=== PATIENT | male | born 1985 | race Two or more races ===

== ENCOUNTER 2025-07-03 07:23 | Emergency (ER) | payer MEDICAID, SELFPAY ==
[2025-07-03 07:53] VITALS: BP 128/84; PULSE 120; RESP 16; TEMP 37.6; O2SAT 96; BMI 27.9
[2025-07-03] MEDS: ACETAMINOPHEN 500 MG TABLET 1000 MG PO (08:23)
[2025-07-03] MEDS: IBUPROFEN TAB 400 MG TABLET 800 MG PO (08:23)
--- NOTE | 2025-07-03 08:37 | PD.EDFEVER ---
ED Fever RME/HPI General Chief Complaint: Fever Stated Complaint: FEVER, ABD PAIN, DIARRHEA, ANDRADE SINCE LAST NIGHT Time Seen by Provider: 07/03/25 08:00 Arrival date/time: 07/03/25 07:23 This is a 39-year-old male that comes into the emergency room with complaints of fever abdominal soreness, diarrhea and a headache since last night. Patient denies any other symptoms. Patient denies past medical history. Related Data Previous Rx's ?Medication ?Instructions ?Recorded ibuprofen 800 mg tablet 800 mg PO Q6H PRN pain #20 tabs 07/03/25 Allergies Allergy/AdvReac Type Severity Reaction Status Date / Time No Known Allergies Allergy Verified 07/03/25 07:30 Review of Systems Review of Systems Systems Reviewed: All systems reviewed, normal except as documented Past Medical History Past Medical History CARDIAC: Negative Congestive Heart Failure RESPIRATORY: Negative Chronic Obstructive Pulmonary Disease (COPD) GENITOURINARY: Negative Renal Disease ENDOCRINE: Negative Diabetes Mellitus Type 1 or Diabetes Mellitus Type 2 Social History SMOKING STATUS: Never smoker Physical Exam Narrative Physical exam: VITAL SIGNS: Reviewed. GENERAL APPEARANCE: Alert and interactive, follows commands, no acute distress, HEAD AND FACE: Non-traumatic. ENT: PERRL, conjuctiva pink and clear, eyelid no trauma, Mucous membrane moist. NECK: Supple, nontender, no nuchal rigidity. CHEST: No tenderness, no crepitus LUNGS: Clear, well ventilated, symmetric, no rales, no wheezing, no rhonchi, no stridor, good breath sounds bilaterally. HEART: Cap refill less than 2 seconds ABDOMEN: Soft, nondistended, no guarding, nontender NEUROLOGICAL: Gross motor function intact sensory function intact, Appropriate for age. MUSCULOSKELETAL: low back nontender, full range of motion. EXTREMITIES: No redness no swelling no skin breakdown on bilateral foot and leg. Distal neurovascular status intact bilateral foot SKIN: Color pink, dry, no rash, no lacerations, no abrasions, no contusions. Course Quality Measures none Orders Category Date Time Status Bedside COVID-19 Antigen Test NOW Care 07/03/25 08:11 Completed Influenza A & B Rapid Panel Stat Lab 07/03/25 08:50 Completed Urinalysis, C/S if Indicated Stat Lab 07/03/25 08:46 Completed Acetaminophen Tab [Tylenol ES Tab] Med 07/03/25 08:11 Discontinued 1,000 mg PO X1 ONE Ibuprofen Tab [Motrin Tab] Med 07/03/25 08:11 Discontinued 800 mg PO X1 ONE Vital Signs Vital signs: Vital Signs Temperature 99.7 F 07/03/25 07:53 Pulse Rate 120 H 07/03/25 07:53 Respiratory Rate 16 07/03/25 07:53 Blood Pressure 128/84 07/03/25 07:53 Pulse Oximetry (%) 96 07/03/25 07:53 Oxygen Delivery Method Room Air 07/03/25 07:53 Fever MDM Narrative MDM Narrative:: COVID and flu negative. Patient feels better after Tylenol ibuprofen. Will treat patient for URI. Follow up with primary provider in 1-2 days. Come back to ED if symptoms change or worsen Lupison dictation: Although this document has been carefully reviewed, there may still be some phonetic and other typographical errors. These errors are purely grammatical due to imperfections in the software program and should not be construed in any way to compromise the substance of the patient's medical care during this visit. Patient data External records reviewed:: [facility] previous records Clinical information provided by:: patient Social determinants that could affect healthcare access:: none Patient has the following chronic illnesses:: None How is presenting disease/condition affected by chronic disease/condition?: no chronic disease Evaluation data The following diagnostics were reviewed and interpreted by me:: lab results Lab and/or radiology exams considered but not ordered:: None Interpretation Summary: See note Medications / Prescriptions Medications or Prescriptions considered but not ordered:: None Medication administrations:: Medication Administration History Discontinued Medications Acetaminophen (Acetaminophen 500 Mg Tablet) 1,000 mg PO X1 ONE Stop: 07/03/25 08:12 Last Admin: 07/03/25 08:23 Dose: 1,000 mg Documented By: ED Ibuprofen (Ibuprofen Tab 400 Mg Tablet) 800 mg PO X1 ONE Stop: 07/03/25 08:12 Last Admin: 07/03/25 08:23 Dose: 800 mg Documented By: ED See MAR Consultations Consultation(s) initiated? (list below): No Diagnosis Fever Differential Diagnosis: fever of unknown origin, community acquired pneumonia, viral infection, influenza and other (URI) Most likely diagnosis given after review of the tests above:: uri Admission Indicated Admission indicated?: not indicated Admission Request Was there a request for admission?: No Disposition Plan Disposition Plan: Discharge Discharge Attestation Discharge Attestation: The patient and all family members were given an opportunity to ask questions and understood the discharge instructions. Discharge instructions specifically effects, indications for sooner follow up or return to the emergency department, and the expected course of current diagnosis. Patient condition: Stable Discharge Plan Plan Patient Disposition: HOME (Self Care) Patient condition on transfer: Stable Prescriptions/Referrals Prescriptions/Med Rec: New ibuprofen 800 mg tablet 800 mg PO Q6H PRN (Reason: pain) Qty: 20 0RF Referrals: No Primary/Family,Physician [Primary Care Provider] - In 1 week Problem List Clinical Impression: URI (upper respiratory infection) Patient/Caregiver Discharge Instructions Discharge Activity: activity as tolerated Education Materials: ED URI, Viral, No Abx (Adult) Additional Instructions: Brandin un brii con villatoro medico de cabecera en las proximas 24-48 horas. Regrese a la robbin de emergencias si hay evidencia de que los signos o sintomas empeoran. Print Language: Korean Stand Alone Forms: Amara Award Info., Patient Portal Info Letter PA/CAR CONSTRUCTION SUPERINTENDENT Supervising Physician PA/CAR CONSTRUCTION SUPERINTENDENT Supervising Physician: darwin
[2025-07-03 09:20] LABS: Collection Type, Urine Voided; Squamous Epithelial Cell,Urine 0 /hpf (0-5)
[2025-07-03 09:43] LABS: Influenza A Ag Negative; Influenza B Ag Negative
[2025-07-03 09:57] LABS: Bilirubin,Urine Negative (Negative); Blood,Urine Negative (Negative); Clarity,Urine Hazy (Clear/Hazy); Color,Urine Drk-Yellow (Lt Yel-Yel); Culture Indicated,Urine Not Indicated; Glucose, Urine Trace (Negative); Ketones,Urine Negative (Negative); Leukocyte Esterase,Urine Negative (Negative); Nitrite,Urine Negative (Negative); PH,Urine 6.0 (5.0-7.0); Protein,Urine 3+ (Neg - Trace); RBC,Urine 2 /hpf (0-3); Specific Gravity,Urine 1.041 (1.001-1.035); Urobilinogen,Urine 2.0 mg/dL (0.0-1.0); WBC,Urine 3 /hpf (0-5)
== END 2025-07-03 10:50 | disposition home or self-care (01) ==
PROVIDERS: Nurse Practitioner Family; Emergency Provider Emergency Medicine
DX: J06.9 Acute upper respiratory infection, unspecified (principal)
CPT/HCPCS: 81001; 87502; 87811; 99283; A9270